=== PATIENT | male | born 1995 | race African-American/Black ===

== ENCOUNTER 2021-08-11 15:26 | Emergency (ER) | payer OTHER, SELFPAY ==
[2021-08-11 15:38] VITALS: BP 148/87; PULSE 81; RESP 16; TEMP 36.2; O2SAT 100
--- NOTE | 2021-08-11 17:08 | ED.DENTAL ---
HPI - Dental/Oral General Chief complaint: Dental/Oral Stated complaint: Tooth ache Time Seen by Provider: 08/11/21 17:00 Source: patient Mode of arrival: ambulatory Limitations: no limitations History of Present Illness HPI Narrative: This is a 26-year-old male that presents to the emergency department for toothache noted over the last week. Reports the pain is now starting to radiate into his ear and pentecostalism. He has been taking [id number] medications with little relief. Denies fever, edema, or erythema. MD Complaint: tooth pain Location: Tooth # (17) Related Data Allergies Allergy/AdvReac Type Severity Reaction Status Date / Time No Known Allergies Allergy Mild Verified 08/11/21 16:58 Review of Systems Review of Systems: CONSTITUTIONAL: Denies fever ENT: Reports dentalgia All systems reviewed & are unremarkable except as noted in HPI and below PMFSH Past Medical History Medical History (Updated 08/11/21 @ 17:11 by Merari Alvarado PA-C) No active medical problems Social History Social History (Updated 08/11/21 @ 17:09 by Merari Alvarado PA-C) Smoking status: Never smoker Exam Narrative: GENERAL: Well-appearing, well-nourished, and in no acute distress. HEAD: Normocephalic, atraumatic. EYES: EOMI. ENT: Mucous membranes moist. Oropharynx without tonsillar hypertrophy exudate or other lesions. Tooth #17 tender to palpation without surrounding edema or erythema to suggest abscess NECK: Supple. No adenopathy or masses. CHEST: No respiratory distress. HEART: Regular rate EXTREMITIES: Normal range of motion. No edema. SKIN: Warm, dry, no rash. NEURO: No focal deficits. Alert and oriented x3. PSYCH: Normal mood and affect Course Vital Signs Vital signs: Vital Signs Temperature 97.2 F L 08/11/21 15:38 Pulse Rate 81 08/11/21 15:38 Respiratory Rate 16 08/11/21 15:38 Blood Pressure 148/87 H 08/11/21 15:38 Pulse Oximetry 100 08/11/21 15:38 Temperature 97.2 F L 08/11/21 15:38 Pulse Rate 81 08/11/21 15:38 Respiratory Rate 16 08/11/21 15:38 Blood Pressure 148/87 H 08/11/21 15:38 Pulse Oximetry 100 08/11/21 15:38 MDM - Dental/Oral MDM Narrative Medical decision making narrative: Patient presents to the emergency department for dentalgia present over the last week. He is afebrile and nontoxic-appearing. No evidence on exam for abscess. Patient will be started on oral antibiotics. He is to follow-up with a dentist. He was given warnings to return to the ER Critical Care Time Critical Care Time Critical Care Time: No Discharge Plan Discharge Clinical Impression: Toothache Patient Disposition: Home, Self-Care Condition: Stable Instructions: Antibiotic Form, Toothache (ED) Additional Instructions: Return to the Emergency Department if you experience fever >101, increasing swelling and redness of your tooth, or any other symptoms that are concerning to you Take antibiotic as prescribed. Tylenol or Ibuprofen as needed for pain. You can apply a dab of clove oil to a Qtip and apply to the tooth to help numb the area Follow up with a dentist. Dr. Chace Driscoll with [facility] if needed Prescriptions: New amoxicillin-pot clavulanate 875-125 mg tablet 1 tablet PO Q12H 7 Days Qty: 14 RF: 0 Follow-up/Referrals: Jeremiah,Bree Yepez MD [Primary Care Provider] -
[2021-08-11 18:22] VITALS: BP 141/83; PULSE 72; RESP 14; TEMP 36.5; O2SAT 100
== END 2021-08-11 18:24 | disposition home or self-care (01) ==
LOC: ANHED 17:15
PROVIDERS: Emergency Provider Emergency Medicine
DX: K08.89 Other specified disorders of teeth and supporting structures (principal)
CPT/HCPCS: 99283

== ENCOUNTER 2021-08-16 06:58 | Emergency (ER) | payer OTHER, SELFPAY ==
[2021-08-16 07:23] VITALS: BP 151/65; PULSE 65; RESP 18; TEMP 36.7; O2SAT 100
--- NOTE | 2021-08-16 07:29 | ED.DENTAL ---
HPI - Dental/Oral General Chief complaint: Dental/Oral Stated complaint: Left lower dental pain seen here for same this wee Time Seen by Provider: 08/16/21 07:09 Source: patient and family Mode of arrival: ambulatory Limitations: no limitations History of Present Illness HPI Narrative: 26-year-old with no major medical problems here with complaints of dental pain for past 1 week. Patient states that he was seen here in the ER was given antibiotic for last 1 day he is unable to sleep because of the pain. He denies any fever or chills. States he has been taking antibiotic. States that he has impacted wisdom tooth. Complaint: tooth pain Onset (ago): week(s) (1) Severity: moderate Relieving factors: nothing Exacerbating factors: nothing Treatment prior to arrival: oral analgesic (Ibuprofen) Related Data Allergies Allergy/AdvReac Type Severity Reaction Status Date / Time No Known Allergies Allergy Mild Verified 08/16/21 07:01 Review of Systems Review of Systems: All systems reviewed & are unremarkable except as noted in HPI and below Constitutional: Constitutional: Reports no additional constitutional complaints Eyes: Eyes: Reports no additional eye complaints ENT: Reports system reviewed and no additional complaints, except as documented Cardiovascular: Cardiovascular: Reports no additional cardiovascular complaints Respiratory: Respiratory: Reports no additional respiratory complaints Gastrointestinal: Gastrointestinal: Reports no additional gastrointestinal complaints Musculoskeletal: Musculoskeletal: Reports no additional musculoskeletal complaints Integumentary/Breasts: Skin/Breast: Reports system reviewed and no additional complaints, except as docu Neurologic: Reports system reviewed and no additional complaints, except as documented PMFSH Past Medical History Medical History No active medical problems Social History Social History Smoking status: Never smoker Exam Narrative: GENERAL: Well-appearing, well-nourished, and in no acute distress. HEAD: Normocephalic, atraumatic. EYES: PERRLA and EOMI. ENT: Mucous membranes moist. No dental abscess or dental caries NECK: Supple. CHEST: Clear to auscultation. No respiratory distress. HEART: Regular rate and rhythm. No murmur heard. Normal peripheral pulses. ABDOMEN: Soft, nontender, nondistended, normal active bowel sounds. EXTREMITIES: Normal range of motion. No edema. SKIN: Warm, dry, no rash. NEURO: No focal deficits. Alert and oriented x3. PSYCH: Normal mood and affect. Course Vital Signs Vital signs: Vital Signs Temperature 36.7 C 08/16/21 07:23 Pulse Rate 65 08/16/21 07:23 Respiratory Rate 18 08/16/21 07:23 Blood Pressure 151/65 H 08/16/21 07:23 Pulse Oximetry 100 08/16/21 07:23 Temperature 36.7 C 08/16/21 07:23 Pulse Rate 65 08/16/21 07:23 Respiratory Rate 18 08/16/21 07:23 Blood Pressure 151/65 H 08/16/21 07:23 Pulse Oximetry 100 08/16/21 07:23 MDM - Dental/Oral Differential Diagnosis Differential diagnosis: Likely gingival abscess, toothache and other (Impacted wisdom tooth) Discharge Plan Discharge Clinical Impression: Dentalgia Patient Disposition: Home, Self-Care Condition: Stable Instructions: Antibiotic Form, Toothache (ED) Prescriptions: New tramadol [Ultram] 50 mg tablet 50 mg PO Q6H PRN (Reason: pain) Qty: 20 RF: 0 No Action amoxicillin-pot clavulanate 875-125 mg tablet 1 tablet PO Q12H 7 Days Qty: 14 RF: 0 Follow-up/Referrals: PHYSICIAN,SPECIAL EDUCATION COORDINATOR [Primary Care Provider] - Stand Alone Forms: Work/School Release IP Time of Disposition: 07:32
== END 2021-08-16 07:55 | disposition home or self-care (01) ==
PROVIDERS: Emergency Provider Family Medicine
DX: K08.89 Other specified disorders of teeth and supporting structures (principal)
CPT/HCPCS: 99283